=== PATIENT | female | born 1995 | race African-American/Black ===

== ENCOUNTER 2016-08-20 07:25 | Inpatient (IN) | payer OTHER ==
[~2016-08-20] VITALS: Ht 157.5 cm; Wt 62.0 kg
[2016-08-20] VITALS (16 sets, daily range): BP systolic 104–125; BP diastolic 56–82
[~2016-08-20 07:25] MED LIST: SERTRALINE HCL50 MG PO; ZOFRAN ODT4 MG PO
[2016-08-20 13:04] LABS: EOSINOPHIL (%) 0.8 % (0-5); EOSINOPHIL COUNT 0.1 K/uL (0-0.3); HEMATOCRIT 34.5 % (36.0-46.0); IMMATURE GRANULOCYTE (%) 1.3 % (0.0-0.7); IMMATURE GRANULOCYTE COUNT 0.2 K/uL; LYMPHOCYTE COUNT 2.3 K/uL (1.0-2.8); MCHC 34.2 G/DL (30.0-36.0); MCV 81.8 FL (83-99); MEAN PLAT.VOLUME 10.3 uM^3 (9.5-12.4); MONOCYTE (%) 6.7 % (3-12); MONOCYTE COUNT 0.9 K/uL (0-0.8); NEUTROPHIL (%) 73.7 % (45-76); NEUTROPHIL COUNT 9.6 K/uL (1.8-6.4); PLATELET COUNT 290 K/uL (156-360); RBC DIS.WIDTH-CV 13.8 % (11.8-14.6); RBC DIS.WIDTH-SD 40.9 % (39-53); RED BLOOD COUNT 4.22 M/uL (3.80-5.20)
[2016-08-21 07:06] VITALS: BP 126/56
[2016-08-21 07:07] LABS: EOSINOPHIL (%) 0.2 % (0-5); EOSINOPHIL COUNT 0.1 K/uL (0-0.3); HEMATOCRIT 31.2 % (36.0-46.0); IMMATURE GRANULOCYTE (%) 0.4 % (0.0-0.7); IMMATURE GRANULOCYTE COUNT 0.1 K/uL; MCH 26.6 PG (29.0-34.0); MCV 80.6 FL (83-99); MEAN PLAT.VOLUME 10.4 uM^3 (9.5-12.4); MONOCYTE (%) 8.5 % (3-12); MONOCYTE COUNT 1.8 K/uL (0-0.8); NEUTROPHIL (%) 81.5 % (45-76); NEUTROPHIL COUNT 17.5 K/uL (1.8-6.4); PLATELET COUNT 263 K/uL (156-360); RBC DIS.WIDTH-CV 13.7 % (11.8-14.6); RBC DIS.WIDTH-SD 39.8 % (39-53); RED BLOOD COUNT 3.87 M/uL (3.80-5.20)
[2016-08-21 07:08] LABS: WHITE BLOOD COUNT 21.5 K/uL (4.1-10.2)
[2016-08-21 15:16] VITALS: BP 121/65
[2016-08-21 23:00] VITALS: BP 122/69
[2016-08-22 08:25] VITALS: BP 117/66
[2016-08-22 15:58] VITALS: BP 130/58
== END 2016-08-22 18:55 | disposition home or self-care (01) | DRG 775 ==
LOC: LDRP-OP → 2WEST 07:26 → LDRP-OP 09-25 12:55
PROVIDERS: Advanced Practice Midwife
PROC: 10907ZC Drainage of Amniotic Fluid, Therapeutic from Products of Conception, Via Natural or Artificial Opening (ICD-10-PCS; principal; 2016-08-20)
PROC: 3E0R3CZ (ICD-10-PCS; principal; 2016-08-20)
PROC: 00HU33Z Insertion of Infusion Device into Spinal Canal, Percutaneous Approach (ICD-10-PCS; principal; 2016-08-20)
PROC: 10E0XZZ Delivery of Products of Conception, External Approach (ICD-10-PCS; principal; 2016-08-20)
DX: O99.214 Obesity complicating childbirth (principal); E66.9 Obesity, unspecified; O99.344 Other mental disorders complicating childbirth; F32.9 Major depressive disorder, single episode, unspecified; Z68.29 Body mass index [BMI] 29.0-29.9, adult; Z37.0 Single live birth; Z3A.39 39 weeks gestation of pregnancy
CPT/HCPCS: 85025; J0595; J7120